=== PATIENT | female | born 1965 | race Caucasian/White ===

== ENCOUNTER 2017-07-16 16:01 | Emergency (ER) | payer OTHER ==
[~2017-07-16] VITALS: Ht 154.9 cm; Wt 85.1 kg
[~2017-07-16 16:01] MED LIST: NEXIUM40 MG PO; TOPAMAX50 MG PO; ZANTAC150 MG PO
[2017-07-16 17:43] VITALS: BP 136/79
== END 2017-07-16 17:44 | disposition home or self-care (01) ==
LOC: EME 16:01
DX: Z20.5 Contact with and (suspected) exposure to viral hepatitis (principal); I10 Essential (primary) hypertension; J45.909 Unspecified asthma, uncomplicated
CPT/HCPCS: 99281; 99283

== ENCOUNTER → 2018-02-17 | Outpatient (CLI) | payer OTHER ==
[~2018-02-17] VITALS: Ht 154.9 cm; Wt 83.9 kg
[~2018-02-17] MED LIST changes: +BYSTOLIC5 MG PO; +COLACE100 MG PO; +DITROPAN5 MG PO; +MIRENA1 EACH IY; +PROAIR HFA8.5 GM IH; +SINGULAIR10 MG PO; +SYNTHROID125 MCG PO; +ULTRAM50 MG PO; +VITAMIN D31000 UNI2 PO
== END | disposition home or self-care (01) ==
LOC: AMB 08:00
PROC: 0DBK8ZX Excision of Ascending Colon, Via Natural or Artificial Opening Endoscopic, Diagnostic (ICD-10-PCS; principal; 2018-02-17)
PROC: 0DBL8ZX Excision of Transverse Colon, Via Natural or Artificial Opening Endoscopic, Diagnostic (ICD-10-PCS; principal; 2018-02-17)
PROC: 0DBP8ZX Excision of Rectum, Via Natural or Artificial Opening Endoscopic, Diagnostic (ICD-10-PCS; principal; 2018-02-17)
DX: Z12.11 Encounter for screening for malignant neoplasm of colon (principal); D12.3 Benign neoplasm of transverse colon; D12.2 Benign neoplasm of ascending colon; K62.1 Rectal polyp; K64.8 Other hemorrhoids; K92.1 Melena; R19.8 Other specified symptoms and signs involving the digestive system and abdomen; I10 Essential (primary) hypertension; E06.3 Autoimmune thyroiditis; E78.6 Lipoprotein deficiency; E66.9 Obesity, unspecified; Z68.30 Body mass index [BMI] 30.0-30.9, adult
CPT/HCPCS: 88305; 93005